=== PATIENT | female | born 1985 | race African-American/Black ===

== ENCOUNTER → 2017-07-17 | Outpatient (CLI) | payer OTHER ==
[~2017-07-17] MED LIST: GLUC1TES75; GLYB5TAB3 PO; LANCETS1 MI1
== END ==
LOC: CDED 10:21
PROVIDERS: ATTEND Obstetrics & Gynecology
DX: O24.419 Gestational diabetes mellitus in pregnancy, unspecified control (principal); Z3A.00 Weeks of gestation of pregnancy not specified
CPT/HCPCS: 97802

== ENCOUNTER 2017-08-03 12:44 | Inpatient (IN) | payer MEDICAID, OTHER ==
[~2017-08-03] VITALS: Ht 152.4 cm; Wt 88.0 kg
[2017-08-03] VITALS (11 sets, daily range): BP systolic 116–142; BP diastolic 65–78; PULSE 55–101; RESP 16–20; TEMP 97.9–98.5; O2SAT 98–100
[~2017-08-03 12:44] MED LIST changes: +DEXAMETHASONE SOD PHOS 4 MG/ML VIAL IV ONE; +LACTATED RINGER'S 1000 ML INJ 2,000 ML IV ONE; +ONDANSETRON HCL 4 MG/2 ML VIAL IV ONE; +OXYTOCIN 10 UNIT/ML AMP IV ONE; +PHENYLEPH/NS 1000 MCG/10 ML SYR IV ONE; +PROPOFOL 200 MG/20 ML AMP IV ONE
[2017-08-03] MEDS ORDERED: LACTATED RINGER'S 1000 ML INJ 1,000 ML IV ONE (13:14)
[2017-08-03] MEDS ORDERED: PREN29TA PO (13:27)
--- NOTE | 2017-08-03 13:35 | HHI.HP ---
HPI Chief Complaint Repeat Date Seen: Aug 03, 2017 Travel History International Travel<30 Days: No Contact w/Intl Traveler<30Days: No Known Affected Area: No (not in the last 30 days, [place] in may, md aware ) History of Present Illness HPI Patient is a 31 year old at 39-1/7 weeks gestation who presents today for repeat . She denies any vaginal bleeding or discharge. No gush or leaking of fluid. Positive movement. Previous two C-sections were performed in [place] under general anesthesia. Her current was complicated by gestational diabetes treated with glyburide. History Past Medical History Narrative Medical Gestational diabetes Obstetric History Obstetric History section x 2 in [place] Past Surgical History Narrative Surgical x 2 Family History Family History: Negative Social History Alcohol Use: No Tobacco Use: No Substance Abuse: No Allergies-Medications (Allergen,Severity, Reaction): Coded Allergies: No Known Allergies (Unverified , 08/03/17) Home Meds Active Scripts Glyburide (Glyburide) 5 Mg Tab, 5 MG PO DAILY for Blood Sugar Management, #30 TAB 0 Refills Take with meals at the same time each day Prov:Norbert Lewis MD 07/22/17 Lancets (Lancets) 1 Mis Mis, EA .ROUTE DIRECTED for Blood Sugar Management, # 1 0 Refills Prov:Mary Hill CNM [facility] 07/16/17 True Metrix Glucose Test Strips (True Metrix Glucose Test Strips) 1 Lola Lola, 1 EA .ROUTE DIRECTED for Blood Sugar Management, #1 BOX 0 Refills Prov:Mary Hill CNM [facility] 07/16/17 Reported Medications Vit-Iron Carbonyl ( Plus Iron 29-1 mg) 29 Mg Iron-1 Mg Tab, 1 TAB PO DAILY for Nutritional Supplement, #30 TAB 0 Refills 08/03/17 Review of Systems Except as stated in HPI: all other systems reviewed are Neg General / Constitutional: No: Fever, Chills Eyes: No: Blurred Vision, Visual changes HENT: No: Headaches Cardiovascular: No: Chest Pain or Discomfort, Palpitations Respiratory: No: Cough, Short of Breath Gastrointestinal: No: Nausea, Abdominal Pain Genitourinary: Pelvic Pain, No: Dysuria, Hematuria, Discharge, Vaginal Bleeding Musculoskeletal: No: Edema Psychiatric: No: Substance Abuse Physical Exam Narrative GENERAL: Well-nourished, well-developed patient. SKIN: Warm and dry. HEAD: Normocephalic and atraumatic. EYES: No scleral icterus. No injection or drainage. ENT: No nasal drainage noted. Mucous membranes pink. Airway patent. NECK: Supple, trachea midline. No JVD. CARDIOVASCULAR: Regular rate and rhythm without murmurs, gallops, or rubs. RESPIRATORY: Breath sounds equal bilaterally. No accessory muscle use. ABDOMEN/GI: Abdomen soft, non-tender, bowel sounds present, no rebound, no guarding Gravid to 39 weeks size GENITOURINARY: External Genitalia: intact and normal in appearance Membranes: intact Uterine Contractions: occasional FHT's: Category: I Baseline: 150 Reactive: + Variability: moderate Decels: none EXTREMITIES: No cyanosis or edema. BACK: Nontender without obvious deformity. NEUROLOGICAL: Awake and alert. Motor and sensory grossly within normal limits. Normal speech. Caprini VTE Risk Assessment Caprini VTE Risk Assessment: No/Low Risk (score <= 1) Caprini Risk Assessment Model Point Value = 1 Point Value = 2 Point Value = 3 Point Value = 5 Age 41-60 Minor surgery BMI > 25 kg/m2 Swollen legs Varicose veins or History of unexplained or recurrent spontaneous Oral contraceptives or hormone replacement Sepsis (< 1 month) Serious lung disease, including pneumonia (< 1 month) Abnormal pulmonary function Acute myocardial infarction Congestive heart failure (< 1 month) History of inflammatory bowel disease Medical patient at bed rest Age 61-74 Arthroscopic surgery Major open surgery (> 45 min) Laparoscopic surgery (> 45 min) Malignancy Confined to bed (> 72 hours) Immobilizing plaster cast Central venous access Age >= 75 History of VTE Family history of VTE Factor V Leiden Prothrombin [id number] Lupus anticoagulant Anticardiolipin antibodies Elevated serum homocysteine Heparin-induced thrombocytopenia Other congenital or acquired thrombophilia Stroke (< 1 month) Elective arthroplasty Hip, pelvis, or leg fracture Acute spinal cord injury (< 1 month) Prophylaxis Regimen Total Risk Factor Score Risk Level Prophylaxis Regimen 0-1 Low Early ambulation 2 Moderate Order ONE of the following: *Sequential Compression Device (SCD) *Heparin 5000 units SQ BID 3-4 Higher Order ONE of the following medications: *Heparin 5000 units SQ TID *Enoxaparin/Lovenox 40 mg SQ daily (WT < 150 kg, CrCl > 30 mL/min) *Enoxaparin/Lovenox 30 mg SQ daily (WT < 150 kg, CrCl > 10-29 mL/min) *Enoxaparin/Lovenox 30 mg SQ BID (WT < 150 kg, CrCl > 30 mL/min) AND/OR *Sequential Compression Device (SCD) 5 or more Highest Order ONE of the following medications: *Heparin 5000 units SQ TID (Preferred with Epidurals) *Enoxaparin/Lovenox 40 mg SQ daily (WT < 150 kg, CrCl > 30 mL/min) *Enoxaparin/Lovenox 30 mg SQ daily (WT < 150 kg, CrCl > 10-29 mL/min) *Enoxaparin/Lovenox 30 mg SQ BID (WT < 150 kg, CrCl > 30 mL/min) AND *Sequential Compression Device (SCD) Data Data Vital Signs Reviewed: Yes Orders Orders Admit To Inpatient (08/03/17 ) Code Status (08/03/17 13:14) Vital Signs (Adult) .ON ADMISSION (08/03/17 13:14) Activity Oob Ad Kelley (08/03/17 13:14) Heart (08/03/17 13:14) Urinary Catheter Management SATINDER.Q8H (08/03/17 13:14) ^ Preps (08/03/17 13:14) Scd / Domo / Foot Pump SATINDER.QSHIFT (08/03/17 13:14) ^ Ultrasound For Locatio (08/03/17 13:14) Diet Npo (08/03/17 Lunch) Lactated Ringer's 1000 Ml Inj (Lr 1000 M (08/03/17 13:14) Lactated Ringer's 1000 Ml Inj (Lr 1000 M (08/03/17 13:44) Cefazolin 2 Gm Premix (Ancef 2 Gm Premix (08/03/17 14:15) Citric Acid-Sodium Citrate Liq (Bicitra (08/03/17 14:45) Type And Screen (08/03/17 13:14) Complete Blood Count With Diff (08/03/17 13:14) Urinalysis - C+S If Indicated (08/03/17 13:14) Drug Screen, Random Urine (08/03/17 13:14) Inpatient Certification (08/03/17 ) Specimen To Be Collected PRN (08/03/17 13:14) Specimen To Be Collected PRN (08/03/17 13:14) Group B Strep: Negative Assessment/Plan Assessment and Plan 31 year old at 39-2/7 weeks gestation. 1. IUP- Category I tracing, reassuring. 2. Repeat . 3. GBS negative. dw Wandy Gutierrez MD, R3 Aug 03, 2017 13:35
[2017-08-03 13:44] LABS: BASOPHIL % 0.3 % (0.0-2.0); EOSINOPHIL % 0.2 % (0.0-4.0); HEMATOCRIT 35.8 % (35.0-46.0); HEMOGLOBIN 12.1 GM/DL (11.6-15.3); LYMPHOCYTE # 1.4 TH/MM3 (1.0-4.8); MEAN CELL VOLUME 89.2 FL (80.0-100.0); MEAN CORPUSCULAR HEMOGLOBIN 30.1 PG (27.0-34.0); MEAN CORPUSCULAR HGB CONC 33.7 % (32.0-36.0); MEAN PLATELET VOLUME 10.7 FL (7.0-11.0); MONO % 6.9 % (0.0-8.0); MONOCYTE # 0.7 TH/MM3 (0-0.9); NEUT % 78.6 % (16.0-70.0); PLATELET COUNT 223 TH/MM3 (150-450); RED BLOOD COUNT 4.02 MIL/MM3 (4.00-5.30); RED CELL DISTRIBUTION WIDTH 14.9 % (11.6-17.2); WHITE BLOOD COUNT 10.1 TH/MM3 (4.0-11.0)
[2017-08-03] MEDS ORDERED: LACTATED RINGER'S 1000 ML INJ 1,000 ML IV SCH ×2 (13:44→21:40)
[2017-08-03 13:56] LABS: BACTERIA, URINE FEW /hpf; BILIRUBIN, URINE NEG (NEG); BLOOD, URINE NEG (NEG); GLUCOSE,URINE NEG (NEG); HYALINE CAST, URINE 1 /lpf (RARE); KETONE, URINE 10 mg/dL (NEG); MUCUS URINE FEW /lpf (OCC); NITRITE,URINE NEG (NEG); SQUAMOUS EPITHELIAL CELL URINE <1 /hpf (0-5); URINE COLOR YELLOW (YELLW/STRAW); URINE LEUKOCYTE ESTERASE MOD (NEG); WHITE BLOOD CELL CLUMPS RARE
[2017-08-03] MEDS ORDERED: ceFAZolin 2 GM PREMIX 50 ML IV SCH (14:15)
[2017-08-03] MEDS ORDERED: CITRIC ACID-SODIUM CITRATE LIQ 30 ML UDC PO SCH (14:45)
[2017-08-03] MEDS ORDERED: MORPHINE SULFATE PF 5 MG/10 ML VIAL ONE (14:59)
[2017-08-03] MEDS ORDERED: ACETAMINOPHEN 1000 MG/100 ML 100 ML IV ONE (14:59)
[2017-08-03] MEDS ORDERED: EPIDURAL-DIPHENHYDRAMINE HCL 50 MG/ML VIAL IV PUSH PRN (15:10)
[2017-08-03] MEDS ORDERED: EPIDURAL-NALOXONE HCL 0.4 MG/ML AMP IV PUSH PRN (15:10)
[2017-08-03] MEDS ORDERED: EPIDURAL-NO SYSTEMIC NARCOTICS PRN (15:10)
[2017-08-03] MEDS ORDERED: EPIDURAL-DIPHENHYDRAMINE HCL 50 MG CAP PO PRN (15:10)
[2017-08-03] MEDS ORDERED: EPIDURAL-DO NOT ADMINISTER ANTICOAGULANTS PRN (15:10)
[2017-08-03] MEDS ORDERED: OXYTOCIN 30 UNITS-500ML PREMIX 500 ML IV ONE (16:45)
[2017-08-03] MEDS ORDERED: DEXTROSE 50% IN WATER 50 ML VIAL(D50) IV PUSH PRN (16:45)
[2017-08-03] MEDS ORDERED: ZOLPIDEM TARTRATE 5 MG TAB PO PRN (16:45)
[2017-08-03] MEDS ORDERED: ONDANSETRON HCL 4 MG/2 ML VIAL IV PUSH PRN (16:45)
[2017-08-03] MEDS ORDERED: ACETAMINOPHEN 325 MG TAB PO PRN (16:45)
[2017-08-03] MEDS ORDERED: GLUCAGON 1 MG/ML VIAL IM PRN (16:45)
[2017-08-03] MEDS ORDERED: SODIUM CHLORIDE 0.9% FLUSH 10 ML FLUSH IV FLUSH PRN (16:45)
[2017-08-03] MEDS ORDERED: OXYTOCIN 30 UNITS-500ML PREMIX 500 ML ONE (17:33)
[2017-08-03] MEDS: SODIUM CHLORIDE 0.9% FLUSH 10 ML FLUSH IV FLUSH SCH (21:00)
[2017-08-04] MEDS ORDERED: OXYTOCIN 30 UNITS-500ML PREMIX 500 ML IV PRN (02:45)
[2017-08-04 03:30] VITALS: PULSE 77; RESP 17; TEMP 98; O2SAT 98
[2017-08-04] MEDS: IBUPROFEN 600 MG TAB PO PRN ×3 (03:55→20:11)
[2017-08-04] MEDS: DOCUSATE SODIUM 50 MG/SENNA 8.6 MG TAB PO PRN ×2 (03:55→20:12)
[2017-08-04] MEDS: oxyCODONE/ACETAMINOPHEN 5 MG/325 MG TAB PO PRN ×3 (03:55→20:12)
[2017-08-04 04:00] VITALS: BP 130/71
[2017-08-04 05:55] LABS: AUTOMATED NEUTROPHIL # 16.2 TH/MM3 (1.8-7.7); BASOPHIL % 0.2 % (0.0-2.0); EOSINOPHIL % 0.2 % (0.0-4.0); HEMATOCRIT 28.7 % (35.0-46.0); HEMOGLOBIN 9.6 GM/DL (11.6-15.3); LYMPH % 7.2 % (9.0-44.0); LYMPHOCYTE # 1.4 TH/MM3 (1.0-4.8); MEAN CELL VOLUME 89.4 FL (80.0-100.0); MEAN CORPUSCULAR HEMOGLOBIN 29.9 PG (27.0-34.0); MEAN CORPUSCULAR HGB CONC 33.5 % (32.0-36.0); MEAN PLATELET VOLUME 10.8 FL (7.0-11.0); MONO % 7.4 % (0.0-8.0); MONOCYTE # 1.4 TH/MM3 (0-0.9); PLATELET COUNT 193 TH/MM3 (150-450); RED BLOOD COUNT 3.21 MIL/MM3 (4.00-5.30); RED CELL DISTRIBUTION WIDTH 14.2 % (11.6-17.2)
--- NOTE | 2017-08-04 07:18 | HHI.OB ---
Subjective Post Operative Day: 1 Remarks Ms. Ledbetter is a 31 yo who is POD 1 from repeat CS 08/03. Patient afebrile with stable vital signs overnight. Patient reports that she is doing ok at this time. Patient is having light vaginal bleeding. Patient does not report excessive abdominal pain. Patient has ambulated once. Patient has not yet eaten but does not have nausea or vomiting. Patient is passing gas. No urinary symptoms. No calf pain reported. Patient reports that she is having some difficulty with due to her milk not yet coming in. Patient does not report other concerns at this time. Objective Vitals/I&O Vital Signs Date Time Temp Pulse Resp B/P (MAP) Pulse Ox O2 Delivery O2 Flow Rate FiO2 08/04/17 04:00 130/71 (90) 08/04/17 03:30 98.0 77 17 98 08/03/17 23:44 98.0 08/03/17 23:44 68 16 120/78 (92) 98 08/03/17 22:00 18 08/03/17 21:00 18 08/03/17 20:00 98.5 08/03/17 20:00 78 17 138/65 (89) 98 08/03/17 18:10 98.3 62 16 142/78 (99) 08/03/17 17:37 55 20 134/74 (94) 100 08/03/17 17:37 98.2 08/03/17 17:20 66 20 128/75 (92) 100 08/03/17 17:10 70 18 134/70 (91) 99 08/03/17 16:55 97.9 68 18 133/74 (93) 99 08/03/17 16:40 133/74 (93) 08/03/17 16:40 97.9 68 18 99 08/03/17 13:01 101 116/72 (87) Result Diagram: 08/04/17 0515 08/04/17 0515 Objective Remarks GENERAL: Well-nourished, well-developed patient. CARDIOVASCULAR: Regular rate and rhythm without murmurs; normal perfusion RESPIRATORY: CTAB; normal rate ABDOMEN/GI: Abdomen soft, non-tender, bowel sounds present. Incision: Clean, dry and intact. Fundus: Firm, non-tender at umbilicus. GENITOURINARY: Light bleeding. EXTREMITIES: No cyanosis or edema, non-tender, without signs of DVT. Medications and IVs Current Medications Medications (Trade) Dose Ordered Sig/Lg Route Start Time Stop Time Status Last Admin Lactated Ringer's 1,000 ml @ 100 mls/hr Q10H IV 08/03/17 21:40 08/04/17 17:39 08/03/17 23:32 Oxytocin 500 ml @ 100 mls/hr UNSCH X1 PRN IV 08/04/17 02:45 08/05/17 02:44 (NS Flush) 2 ml BID IV FLUSH 08/03/17 21:00 (NS Flush) 2 ml UNSCH PRN IV FLUSH 08/03/17 16:45 (Mylicon Chew) 80 mg QID PRN PO 08/03/17 16:45 (Tylenol) 650 mg Q6H PRN PO 08/03/17 16:45 (Motrin) 600 mg Q6H PRN PO 08/03/17 16:45 08/04/17 03:55 (Percocet 5-325 Mg) 1 tab Q4H PRN PO 08/03/17 16:45 08/04/17 03:55 (Percocet 5-325 Mg) 2 tab Q4H PRN PO 08/03/17 16:45 Cefazolin Sodium 1000 mg/Sodium Chloride 100 ml @ 200 mls/hr Q8H IV 08/03/17 23:00 08/04/17 07:29 08/04/17 06:30 (Zulma-Colace) 2 tab Q12H PRN PO 08/03/17 16:45 08/04/17 03:55 (Ambien) 5 mg HS PRN PO 08/03/17 16:45 (M-M-R Ii Inj) 0.5 ml ONCE ONCE SQ 08/04/17 16:00 08/04/17 16:01 (Boostrix Inj) 0.5 ml ONCE ONCE IM 08/04/17 16:00 08/04/17 16:01 (Zofran Inj) 4 mg Q6H PRN IV PUSH 08/03/17 16:45 (D50w (Vial) Inj) 50 ml UNSCH PRN IV PUSH 08/03/17 16:45 (Glucagon Inj) 1 mg STAT PRN IM 1/22/18 16:45 Miscellaneous Information NO SYSTEMIC NARCOTICS TO BE GIVEN FO... UNSCH PRN .XX 08/03/17 15:10 08/04/17 15:09 (Narcan Inj) 0.4 mg UNSCH PRN IV PUSH 08/03/17 15:10 08/04/17 15:09 (Benadryl Inj) 25 mg Q6H PRN IV PUSH 08/03/17 15:10 08/04/17 15:09 (Benadryl) 50 mg Q6H PRN PO 08/03/17 15:10 08/04/17 15:09 Miscellaneous Information ALL NURSING DEPARTMENTS UNSCH PRN .XX 08/03/17 15:10 08/04/17 15:09 Assessment/Plan Problem List: (1) care following delivery ICD Codes: Z39.2 - Encounter for routine follow-up Status: Acute Assessment and Plan Ms. Ledbetter is a 31 yo who is POD 1 from repeat CS 08/03/2017: -Continue repeat post- care -Continue to monitor VS, oral intake, assess vaginal bleeding -Continue to encourage breast feeding -PRN Percocet and Ibuprofen for pain control Anemia Impression: Pre-op Hgb 12.1-> 9.6 post-operatively. -Will plan for iron supplementation on discharge Urinalysis abnormality Impression: UA on admission with 25 WBC, few bacteria. No urinary symptoms -Will follow results of urine culture Jori Marino MD, R3 Aug 04, 2017 07:18
[2017-08-04 08:00] VITALS: BP 118/72; PULSE 85; RESP 16; TEMP 97.8; O2SAT 98
--- NOTE | 2017-08-04 14:33 | MP ---
cc: SERAFIN TORRES MD DATE OF SURGERY 08/03/2017 PREOPERATIVE DIAGNOSIS Term intrauterine , previous , for repeat . POSTOPERATIVE DIAGNOSIS Term intrauterine , previous , for repeat . PROCEDURE Repeat low transverse section. SURGEON Gabriel. WET PAN MIXER Caprice. ANESTHESIA Spinal. PREOPERATIVE NOTE The patient is a 31-year-old black female, G4, P2, two previous C-sections, now at 39 weeks, desires repeat . DETAILS OF PROCEDURE The patient was taken to the operating room and placed in supine position on the operating table. Adequate spinal anesthesia administered. She was prepped and draped for abdominal surgery. A Pfannenstiel incision was made in the lower abdomen and carried to the fascia sharply. The fascia was dissected off the rectus muscle and the rectus split in the midline. The peritoneal cavity was entered sharply. The incision was extended superiorly and inferiorly and then stretched open to allow adequate room. A bladder blade was placed at the lower edge of the incision and the visceral peritoneum reflected off the lower uterine segment. A transverse hysterotomy was placed and entered bluntly bilaterally. A female was delivered at 15:36, weight 3200 grams, Apgars 8 and 9. There were no complications. Cord blood was obtained after clamping the cord with delayed cord clamping. The placenta was manually extracted. The uterus was exteriorized. The hysterotomy was closed in a running layer of 0 chromic followed by an imbricating suture of same. The imbricating suture was a Lembert stitch. We had adequate hemostasis. The uterus was elevated and blood was suctioned from the cul-de-sacs and the uterus placed in the peritoneal cavity. The ovaries and tubes were normal on both sides. The rectus muscle was re-approximated with stick ties of Vicryl. The fascia was closed in a running layer of Vicryl. The subcutaneous tissue was re-approximated with 3-0 plain in a running stitch. The skin was closed with a subcuticular stitch of 3-0 Monocryl. Steri-Strips and a pressure dressing were applied. The estimated blood loss was 750 cc. There were no complications. Sponge and needle count was correct x2. The patient went to Recovery in stable condition. MD KATHIA Layton/KRISTEN /5:48 PM /2:21 PM
[2017-08-04] MEDS ORDERED: DIPHTH/TETANUS/ACEL PERTUSSIS (BOOSTER) 0.5 ML VIAL/PFS IM ONE (16:00)
[2017-08-04] MEDS ORDERED: MEASLES, MUMPS, RUBELLA VACCINE 0.5 ML VIAL SQ ONE (16:00)
[2017-08-04 20:00] VITALS: BP 103/69; PULSE 80; RESP 18; TEMP 98.2; O2SAT 100
[2017-08-05] MEDS: IBUPROFEN 600 MG TAB PO PRN ×3 (02:11→17:39)
[2017-08-05] MEDS: oxyCODONE/ACETAMINOPHEN 5 MG/325 MG TAB PO PRN ×5 (02:11→21:11)
--- NOTE | 2017-08-05 09:26 | HHI.OB ---
Subjective Post Operative Day: 2 Remarks Ms. Ledbetter is a 31 yo who is POD 2 from repeat CS 08/03. Patient afebrile with stable vital signs overnight. Ms. Ledbetter reports that she is doing well; mild vaginal bleeding. She does not report significant abdominal pain. Patient has been eating well. Patient passing gas; she has not yet had a bowel movement. Patient has been urinating normally without reported dysuria. Patient does not report shortness of breath or calf pain. Patient has been attempting to breast feed / pump breast mild but reports her milk has not yet come in. Objective Vitals/I&O Vital Signs Date Time Temp Pulse Resp B/P (MAP) Pulse Ox O2 Delivery O2 Flow Rate FiO2 08/04/17 20:00 98.2 08/04/17 20:00 80 18 103/69 (80) 100 Result Diagram: 08/04/1751408/04/17514 Objective Remarks GENERAL: Well-nourished, well-developed patient. CARDIOVASCULAR: Regular rate and rhythm without murmurs; normal perfusion RESPIRATORY: CTAB; normal rate ABDOMEN/GI: Abdomen soft, non-tender, bowel sounds present. Incision: Clean, dry and intact. Fundus: Firm, non-tender at umbilicus. GENITOURINARY: Light bleeding. EXTREMITIES: No cyanosis or edema, non-tender, without signs of DVT. Medications and IVs Current Medications Medications (Trade) Dose Ordered Sig/Lg Route Start Time Stop Time Status Last Admin (NS Flush) 2 ml BID IV FLUSH 08/03/17 21:00 (NS Flush) 2 ml UNSCH PRN IV FLUSH 08/03/17 16:45 (Mylicon Chew) 80 mg QID PRN PO 08/03/17 16:45 (Tylenol) 650 mg Q6H PRN PO 08/03/17 16:45 (Motrin) 600 mg Q6H PRN PO 08/03/17 16:45 08/05/17 02:11 (Percocet 5-325 Mg) 1 tab Q4H PRN PO 08/03/17 16:45 08/05/17 02:11 (Percocet 5-325 Mg) 2 tab Q4H PRN PO 08/03/17 16:45 08/04/17 12:47 (Zulma-Colace) 2 tab Q12H PRN PO 08/03/17 16:45 08/04/17 20:12 (Ambien) 5 mg HS PRN PO 08/03/17 16:45 (Zofran Inj) 4 mg Q6H PRN IV PUSH 08/03/17 16:45 (D50w (Vial) Inj) 50 ml UNSCH PRN IV PUSH 08/03/17 16:45 (Glucagon Inj) 1 mg STAT PRN IM 08/03/17 16:45 Assessment/Plan Problem List: (1) care following delivery ICD Codes: Z39.2 - Encounter for routine follow-up Status: Acute Assessment and Plan Ms. Ledbetter is a 31 yo who is POD 2 from repeat CS 08/03/2017: -Continue repeat post- care -Continue to monitor VS, oral intake, assess vaginal bleeding -Continue to encourage breast feeding -PRN Percocet and Ibuprofen for pain control Anemia Impression: Pre-op Hgb 12.1-> 9.6 post-operatively. -Will plan for iron supplementation on discharge Urinalysis abnormality Impression: UA on admission with 25 WBC, few bacteria. No urinary symptoms. Received Ancef 2gm x1 perioperatively Urine culture- gram - rods -Will start Macrobid -Will follow urine culture for sensitivities Jori Marino MD, R3 Aug 05, 2017 09:26
[2017-08-05] MEDS: NITROFURANTOIN MONOHYD MACROCR 100 MG CAP PO SCH ×2 (11:22→17:39)
[2017-08-05] MEDS: SIMETHICONE 80 MG CHEWABLE TAB PO PRN ×2 (11:22→21:10)
[2017-08-05 11:27] VITALS: BP 122/78; PULSE 87; RESP 18; TEMP 98.2
[2017-08-05 20:00] VITALS: BP 111/71; PULSE 77; RESP 18; TEMP 97.6; O2SAT 98
[2017-08-05] MEDS: DOCUSATE SODIUM 50 MG/SENNA 8.6 MG TAB PO PRN (21:10)
[2017-08-05] MEDS: FERROUS SULFATE 325 MG (65 MG ELEMENTAL IRON) TAB PO SCH (21:10)
[2017-08-06] MEDS: IBUPROFEN 600 MG TAB PO PRN ×2 (04:53→13:21)
[2017-08-06] MEDS: oxyCODONE/ACETAMINOPHEN 5 MG/325 MG TAB PO PRN ×2 (04:54→13:20)
[2017-08-06] MEDS: SODIUM CHLORIDE 0.9% FLUSH 10 ML FLUSH IV FLUSH SCH (07:19)
--- NOTE | 2017-08-06 07:40 | HHI.OB ---
Subjective Post Operative Day: 3 Remarks Ms. Ledbetter is a 31 yo who is POD 3 from repeat CS 08/03. Patient afebrile with stable vital signs overnight. Ms. Ledbetter reports that her abdominal pain has been decreasing; patient is also having decreased vaginal bleeding. Patient has been eating well; she has been passing gas but has not yet had a bowel movement. Patient continues to deny any urinary symptoms. Patient ambulating well. No reported shortness of breath. Patient has had continued difficulty with obtaining pumped breast milk but was able to pump some colostrum successfully yesterday. Objective Vitals/I&O Vital Signs Date Time Temp Pulse Resp B/P (MAP) Pulse Ox O2 Delivery O2 Flow Rate FiO2 08/05/17 20:00 97.6 77 18 111/71 (84) 98 08/05/17 11:27 98.2 87 18 122/78 (93) Result Diagram: 08/04/17 0515 08/04/17514 Objective Remarks GENERAL: Well-nourished, well-developed patient. CARDIOVASCULAR: Regular rate and rhythm without murmurs; normal perfusion RESPIRATORY: CTAB; normal rate ABDOMEN/GI: Abdomen soft, non-tender, bowel sounds present. Incision: Clean, dry and intact. Fundus: Firm, non-tender at umbilicus. GENITOURINARY: Light bleeding. EXTREMITIES: No cyanosis or edema, non-tender, without signs of DVT. Medications and IVs Current Medications Medications (Trade) Dose Ordered Sig/Lg Route Start Time Stop Time Status Last Admin (NS Flush) 2 ml BID IV FLUSH 08/03/17 21:00 (NS Flush) 2 ml UNSCH PRN IV FLUSH 08/03/17 16:45 (Mylicon Chew) 80 mg QID PRN PO 08/03/17 16:45 08/05/17 21:10 (Tylenol) 650 mg Q6H PRN PO 08/03/17 16:45 (Motrin) 600 mg Q6H PRN PO 08/03/17 16:45 08/06/17 04:53 (Percocet 5-325 Mg) 1 tab Q4H PRN PO 08/03/17 16:45 08/05/17 02:11 (Percocet 5-325 Mg) 2 tab Q4H PRN PO 08/03/17 16:45 08/06/17 04:54 (Zulma-Colace) 2 tab Q12H PRN PO 08/03/17 16:45 08/05/17 21:10 (Ambien) 5 mg HS PRN PO 08/03/17 16:45 (Zofran Inj) 4 mg Q6H PRN IV PUSH 08/03/17 16:45 (D50w (Vial) Inj) 50 ml UNSCH PRN IV PUSH 08/03/17 16:45 (Glucagon Inj) 1 mg STAT PRN IM 08/03/17 16:45 (Ferrous Sulfate) 325 mg BID PO 08/05/17 21:00 08/05/17 21:10 (Macrobid) 100 mg BIDPC PO 08/05/17 09:30 08/05/17 17:39 Assessment/Plan Problem List: (1) care following delivery ICD Codes: Z39.2 - Encounter for routine follow-up Status: Acute Assessment and Plan Ms. Ledbetter is a 31 yo who is POD 3 from repeat CS 08/03/2017: -Continue repeat post- care -Continue to monitor VS, oral intake, assess vaginal bleeding -Continue to encourage breast feeding -PRN Percocet and Ibuprofen for pain control Anemia Impression: Pre-op Hgb 12.1-> 9.6 post-operatively. -Will plan for iron supplementation on discharge Urinalysis abnormality Impression: UA on admission with 25 WBC, few bacteria. No urinary symptoms. Received Ancef 2gm x1 perioperatively Urine culture- resistant to Unasyn, Cefazolin, Cefepime, Cefuroxime, Ciprofloxacin, Gentamicin, Tobramycin, Bactrim, Trimethoprim -Continue Macrobid BID -Contact precautions Jori Marino MD, R3 Aug 06, 2017 07:40
[2017-08-06] MEDS ORDERED: PERI PO (07:45)
[2017-08-06] MEDS ORDERED: IBUP-232 PO (07:45)
[2017-08-06] MEDS ORDERED: NITR100C4 PO (07:45)
[2017-08-06] MEDS ORDERED: OXYC1TAB63 PO (07:45)
--- NOTE | 2017-08-06 07:46 | HHI.DCPOC ---
Discharge Care Plan Diagnosis: (1) care following delivery Report Symptoms to Your Doctor -Temperature above 100.5 degrees -Redness, of incision or excessive or foul smelling drainage -Unusual pain or calf pain -Increased vaginal bleeding -Painful or difficulty urinating -Feelings of extreme sadness or anxiety after 2 weeks Goals to Promote Your Health * To prevent worsening of your condition and complications * To maintain your health at the optimal level Directions to Meet Your Goals Take your medications as prescribed Follow your dietary instruction Follow activity as directed Ensure plenty of rest for recovery Drink fluids for hydration Keep your appointments as scheduled Take your immunizations and boosters as scheduled If your symptoms worsen call your PCP, if no PCP go to Urgent Care Center or Emergency Room Smoking is Dangerous to Your Health. Avoid second hand smoke Call the 24-hour crisis hotline for domestic abuse at Jori Marino MD, R3 Aug 06, 2017 07:45
[2017-08-06 08:15] VITALS: BP 125/75; PULSE 66; RESP 16; TEMP 98.2
[2017-08-06] MEDS: FERROUS SULFATE 325 MG (65 MG ELEMENTAL IRON) TAB PO SCH (10:15)
[2017-08-06] MEDS: NITROFURANTOIN MONOHYD MACROCR 100 MG CAP PO SCH (10:15)
== END 2017-08-06 15:23 | disposition home or self-care (01) | DRG 766 ==
LOC: H2EB 12:44 → H1EA 18:05
PROVIDERS: ADMIT Obstetrics & Gynecology Maternal & Fetal Medicine; ATTEND Obstetrics & Gynecology Maternal & Fetal Medicine
PROC: 10D00Z1 Extraction of Products of Conception, Low, Open Approach (ICD-10-PCS; principal; 2017-08-03)
DX: O34.211 Maternal care for low transverse scar from previous cesarean delivery (principal); O24.425 Gestational diabetes mellitus in childbirth, controlled by oral hypoglycemic drugs; D64.9 Anemia, unspecified; O99.02 Anemia complicating childbirth; Z37.0 Single live birth; Z3A.39 39 weeks gestation of pregnancy
CPT/HCPCS: 59025; 80307; 81001; 82947; 85025; 86850; 86900; 86901; 87077; 87086; 87186; 90715; J0131; J0690; J1100; J2274; J2370; J2405; J2590; J3010; J7120